=== PATIENT | female | born 1995 | race Caucasian/White ===

== ENCOUNTER 2023-12-28 10:02 | Outpatient (CLI) | payer OTHER, SELFPAY | END 2023-12-28 10:03 | disposition home or self-care (01) | LOC: NFLDREF 10:02 | PROVIDERS: PCP Family Medicine; Visit Provider Obstetrics & Gynecology | DX: R10.2 Pelvic and perineal pain (principal); R82.90 Unspecified abnormal findings in urine | CPT/HCPCS: 87086 ==

== ENCOUNTER 2024-01-04 13:43 | Outpatient (CLI) | payer OTHER, SELFPAY ==
--- NOTE | 2024-01-04 14:00 | CRLHL7_ITS ---
For Patients: As a result of the Century Cures Act, medical imaging exams and procedure reports are released immediately into your electronic medical record. You may view this report before your referring provider. If you have questions, please contact your health care provider. CLINICAL HISTORY: Pelvic pain TECHNIQUE: 2D rivas scale ultrasound. In addition color Doppler and spectral Doppler analysis was performed of the pelvis using a transabdominal and transvaginal approach. FINDINGS: The myometrium has a normal uniform echotexture. The uterus measures 6.8 x 3.8 x 5.5 cm. A few scattered echogenic foci are associated with the endometrium. The endometrial thickness is 4 millimeters. The right ovary measures 3.8 x 1.2 x 2.2 cm in size and the right ovary measures 3.4 x 1.2 x 1.9 cm. The ovaries demonstrate normal arterial and venous blood flow on color Doppler and spectral Doppler analysis. There are no suspicious fluid collections within the cul-de-sac. IMPRESSION: No uterine fibroid. Normal ovaries. No torsion or adnexal mass. No excess pelvic free fluid. Dictated by Basil Vanessa MD @ 01/04/2024 4:17:47 PM (Electronically Signed)
== END 2024-01-04 13:44 | disposition home or self-care (01) ==
LOC: US 13:43
PROVIDERS: PCP Family Medicine; Visit Provider Obstetrics & Gynecology
DX: R10.2 Pelvic and perineal pain (principal)
CPT/HCPCS: 76830; 76856; 93976

== ENCOUNTER 2024-11-27 11:54 | Outpatient (CLI) | payer OTHER, SELFPAY ==
--- NOTE | 2024-11-27 12:15 | CRLHL7_ITS ---
For Patients: As a result of the Century Cures Act, medical imaging exams and procedure reports are released immediately into your electronic medical record. You may view this report before your referring provider. If you have questions, please contact your health care provider. CLINICAL HISTORY: PELVIC AND PERINEAL PAIN COMPARISON: None. TECHNIQUE: 2D rivas-scale ultrasound. In addition, color Doppler and spectral Doppler analysis was performed of the pelvis using a transabdominal and transvaginal approach. Transvaginal imaging performed to better visualize the endometrial stripe and ovaries. FINDINGS: Uterus measures 7.9 x 4.1 x 5.2 cm. No uterine fibroid. Normal position of an IUD within the endometrial canal. Endometrium is not thickened. The right ovary measures 4.6 x 2.0 x 3.9 cm in size and the left ovary measures 3.0 x 1.0 x 1.4 cm. The ovaries demonstrate normal arterial and venous blood flow on color Doppler and spectral Doppler analysis. There are no suspicious fluid collections within the cul-de-sac. Simple cyst is noted within the right ovary which measures 2.6 cm. IMPRESSION: Simple cyst right ovary measures 2.6 cm. No torsion or excess pelvic free fluid. Normal position of an IUD within the endometrial canal. Dictated by Basil Vanessa MD @ 11/27/2024 5:44:57 PM (Electronically Signed)
== END 2024-11-27 11:55 | disposition home or self-care (01) ==
LOC: US 11:54
PROVIDERS: PCP Family Medicine; Visit Provider Registered Nurse
DX: R10.2 Pelvic and perineal pain (principal); N83.291 Other ovarian cyst, right side
CPT/HCPCS: 76830; 76856; 93976